=== PATIENT | female | born 1960 | race African-American/Black ===

== ENCOUNTER 2022-06-24 12:43 | Emergency (ER) | payer MEDICAID ==
[2022-06-24] MEDS ORDERED: Albuterol/Ipratropium 3.0-0.5 MG/3 ML Neb Soln ONE (12:48)
[2022-06-24] MEDS ORDERED: Albuterol/Ipratropium 3.0-0.5 MG/3 ML Neb Soln NEB ONE (12:50)
[2022-06-24] MEDS ORDERED: predniSONE 20 MG Tab PO ONE (13:13)
== END 2022-06-24 13:40 | disposition home or self-care (01) ==
LOC: MW.ED 12:43
DX: J45.901 Unspecified asthma with (acute) exacerbation (principal); Z79.51 Long term (current) use of inhaled steroids
CPT/HCPCS: 93005; 99284; A9270; 99283; J7620-GY